=== PATIENT | female | born 1965 | race Hispanic/Latino ===

== ENCOUNTER 2018-06-14 08:16 | Observation (INO) | payer BC, MEDICARE ==
[2018-06-14 08:21] VITALS: BMI 21.5
[2018-06-14] MEDS ORDERED: Iohexol 240 (50 ml) PO ONE (08:48)
[2018-06-14] MEDS ORDERED: Sodium Chloride 0.9% 1,000 ML IV STA (08:49)
[2018-06-14] MEDS ORDERED: Iohexol 240 (50 ml) ONE (08:56)
[2018-06-14] MEDS ORDERED: Morphine 4 MG/ML VIAL ONE (08:57)
--- NOTE | 2018-06-14 09:00 | ED PDOC ---
HPI: Abdomen Time Seen by Provider: 06/14/18 08:35 Chief Complaint (Nursing): Abdominal Pain Chief Complaint (Provider): Abdominal Pain History Per: Patient History/Exam Limitations: no limitations Onset/Duration Of Symptoms: Worse Since (1 day) Location Of Pain/Discomfort: RLQ Associated Symptoms: Nausea, Vomiting. denies: Fever, Diarrhea Additional Complaint(s): 52 years old female with history of chronic pancreatitis, diabetes, hypertension and high cholesterol, who is currently visiting from [place], [place], presents to ER for a new abdominal pain in right lower quadrant associated with ongoing nausea and vomiting onset 1 day that she states is inconsistence with prior history of pain. Patient reports having chronic pancreatitis for 10 years due to elevated triglycerides and chronic G2 in which she supplemented a diet for when pain worsens. She states she woke up yesterday on symptoms that have been worsening for the last 24 hours. Patient is unsure if nausea is different than her baseline nausea. She reports taking pain medication of dilaudid medication and oxycontin daily. Patient denies any fever or diarrhea. PMD: Dr. Sharda Bruce. Past Medical History Reviewed: Historical Data, Nursing Documentation, Vital Signs Vital Signs: Last Vital Signs Temp 98.3 F 06/14/18 08:21 Pulse 83 06/14/18 08:21 Resp 20 06/14/18 08:21 BP 143/74 06/14/18 08:21 Pulse Ox 97 06/14/18 08:21 - Medical History PMH: Diabetes, HTN, Hypercholesterolemia, Hyperlipidemia, Pancreatitis (with feeding tube for periodic use with flareups) Denies: Chronic Kidney Disease - Surgical History Other surgeries: G2 - Family History Family History: States: Unknown Family Hx - Social History Current smoker - smoking cessation education provided: No Alcohol: None Drugs: Denies - Immunization History Hx Tetanus Toxoid Vaccination: No Hx Influenza Vaccination: No Hx Pneumococcal Vaccination: No - Home Medications Home Medications: Ambulatory Orders Medication Instructions Recorded Aspirin [Aspirin Chewable] 81 mg PO DAILY 06/14/18 Ergocalciferol (Vitamin D2) 50,000 unit PO QWK 06/14/18 [Vitamin D2] Fenofibrate [Tricor] 145 mg PO DAILY 06/14/18 Gabapentin [Neurontin] 400 mg PO TID 06/14/18 HYDROmorphone [Dilaudid] 4 mg PO DAILY 06/14/18 Insulin Aspart, Recombinant 06/14/18 [Novolog] Lisinopril [Zestril] 20 mg PO DAILY 06/14/18 Metoprolol Succinate [Toprol Xl] 50 mg PO DAILY 06/14/18 Oxycodone HCl [Oxycontin] 20 mg PO TID 06/14/18 Paroxetine HCl [Paxil] 40 mg PO DAILY 06/14/18 Rosuvastatin Calcium [Crestor] 5 mg PO DAILY 06/14/18 amLODIPine [Norvasc] 5 mg PO DAILY 06/14/18 - Allergies Allergies/Adverse Reactions: Allergies Allergy/AdvReac Type Severity Reaction Status Date / Time prochlorperazine AdvReac ANAPHYLAXIS Verified 06/14/18 08:37 [From Compazine] Review of Systems ROS Statement: Except As Marked, All Systems Reviewed And Found Negative Constitutional: Negative for: Fever Gastrointestinal: Positive for: Nausea, Vomiting, Abdominal Pain (RLQ). Negative for: Diarrhea Physical Exam - Reviewed Nursing Documentation Reviewed: Yes Vital Signs Reviewed: Yes - Physical Exam Appears: Positive for: Non-toxic, No Acute Distress Head Exam: Positive for: ATRAUMATIC, NORMOCEPHALIC Skin: Positive for: Normal Color, Warm, Dry Eye Exam: Positive for: Normal appearance, EOMI, PERRL Cardiovascular/Chest: Positive for: Regular Rate, Rhythm. Negative for: Murmur Respiratory: Positive for: Normal Breath Sounds. Negative for: Respiratory Distress Gastrointestinal/Abdominal: Positive for: Tenderness (Right lower quadrant), Guarding, Other (G2 tube in place. + rovsing sign) Back: Positive for: Normal Inspection. Negative for: L CVA Tenderness, R CVA Tenderness Extremity: Positive for: Normal ROM. Negative for: Pedal Edema, Swelling Neurologic/Psych: Positive for: Alert, Oriented (x3) - Laboratory Results Result Diagrams: 06/14/18 08:54 06/14/18 08:54 - ECG O2 Sat by Pulse Oximetry: 97 (RA) Pulse Ox Interpretation: Normal Medical Decision Making Medical Decision Making: Time: 847 Initial Impression: Rule out appendicitis and obstruction Initial Plan: --Workup for acute abdominal pain --NaCl 1,000 ml IV --Morphine 4 mg IV --Iohexol 50 ml PO --Zofran 4 mg IV --CT Abdomen/Pelvis 1304 Abdomen/Pelvis CT FINDINGS: LOWER THORAX: Unremarkable. LIVER: Unremarkable. No gross lesion or ductal dilatation. GALLBLADDER AND BILE DUCTS: Gallbladder is partially contracted the limbs more normal mural thickness. No pericholecystic fluid collection or radiodense cholelithiasis associated. PANCREAS: Unremarkable. No gross lesion or ductal dilatation. SPLEEN: Unremarkable. ADRENALS: Unremarkable. No mass. KIDNEYS AND URETERS: Unremarkable. No hydronephrosis. No solid mass. VASCULATURE: Unremarkable. No aortic aneurysm. Inferior aortic atherosclerotic calcification present. BOWEL: Stomach is remarkable for tubing entering into the antrum and extending into the duodenum terminating at the jejunum. No other pertinent gastric findings appreciable with partial distention noted with gas and oral contrast material. No small or large bowel obstruction is identified. With a moderate amount of retained fecal material scattered throughout the proximal half of the colon. No gross mural thickening appreciable. APPENDIX: The appendix is thickened up to 9.7 mm with mural thickening and periappendiceal reaction present. Reactive changes extend up the right pericolic gutter with trace fluid, compatible with appendicitis. No free intra peritoneal gas collection is identified throughout the abdomen or pelvis, including the periappendiceal space, microperforation is difficult to completely exclude. No abscess identified at this time. PERITONEUM: As above in appendix section. LYMPH NODES: Unremarkable. No enlarged lymph nodes. BLADDER: Urinary bladder is incompletely distended limiting evaluation of the wall which appears mildly thickened without focal lesion appreciable. Cystitis not completely excluded. REPRODUCTIVE: Unremarkable. BONES: No acute fracture. OTHER FINDINGS: None. IMPRESSION: 1. Findings most compatible with appendicitis including periappendiceal reaction and reactive changes extending up into right pericolic gutter. Trace fluid is associated in the pericolic gutter. Limited perforation of the appendix not completely excluded. No free intra peritoneal gas collection identified or abscess. 2. Feeding tube in position entering into the stomach and terminating at jejunum. 3. Urinary bladder distension limited evaluation of urinary bladder wall. Cystitis difficult to exclude. 1300 Spoke to hand frame surgical elastic knitter for consultation, admit to Dr Vela service. Care transferred to surgical team. Antibiotics were initiated. Results explained to patient and family member and initial questions answered at length. --- -- Scribe Attestation: Documented by Nu Joshi, acting as a scribe for Oswaldo Oliva MD. Provider Scribe Attestation: All medical record entries made by the Scribe were at my direction and personally dictated by me. I have reviewed the chart and agree that the record accurately reflects my personal performance of the history, physical exam, medical decision making, and the department course for this patient. I have also personally directed, reviewed, and agree with the discharge instructions and disposition. Disposition - Clinical Impression Clinical Impression: Acute appendicitis - Patient ED Disposition Is Patient to be Admitted: Yes - Disposition Disposition Time: 12:45 Condition: STABLE - Pt Status Changed To: Hospital Disposition Of: Observation - POA Present On Arrival: None
[2018-06-14 09:02] LABS: BASO # 0.1 K/uL (0.0-0.2); BASO % 0.8 % (0.0-2.0); EOS # 0.3 K/uL (0.0-0.7); EOS % 2.6 % (0.0-4.0); HEMOGLOBIN 13.4 g/dL (12.0-16.0); LYMPH # 1.7 K/uL (1.0-4.3); LYMPH % 15.7 % (20.0-40.0); MEAN CELL VOLUME 87.1 fl (81.0-99.0); MEAN CORPUSCULAR HEMOGLOBIN 28.5 pg (27.0-31.0); MEAN CORPUSCULAR HGB CONC 32.7 g/dL (33.0-37.0); MEAN PLATELET VOLUME 8.7 fl (7.2-11.7); MONO # 1.1 K/uL (0.0-0.8); MONO % 10.7 % (0.0-10.0); NEUT # 7.5 K/uL (1.8-7.0); NEUT % 70.2 % (50.0-75.0); RBC 4.72 Mil/uL (3.80-5.20); WHITE BLOOD COUNT 10.7 K/uL (4.8-10.8)
[2018-06-14 09:09] LABS: ALB/GLOB RATIO 1.2 (1.0-2.1); ALBUMIN 3.6 g/dL (3.5-5.0); ALT/SGPT 31 U/L (9-52); AST/SGOT 16 U/L (14-36); BLOOD UREA NITROGEN 14 mg/dl (7-17); CALCIUM 8.9 mg/dL (8.4-10.2); GFR NON-AFRICAN AMERICAN > 60; LIPASE 57 U/L (23-300)
[2018-06-14] MEDS ORDERED: Iohexol 300 100 ML IJ ONE (11:07)
[2018-06-14] MEDS ORDERED: Sodium Chloride 0.9% 50 ML IV ONE (11:08)
[2018-06-14] MEDS ORDERED: Piperacillin/Tazobact 4.5 GM in Sodium Chloride 0.9% 100 ML IVPB STA (12:57)
--- NOTE | 2018-06-14 13:08 | CT ---
Date of service: 06/14/2018 PROCEDURE: CT Abdomen and Pelvis with contrast HISTORY: RLQ pain hx chronic pancreatitis/Gtube; chronic triglyceride elevation COMPARISON: None. TECHNIQUE: Following the intravenous administration of iodinated contrast material, a CT examination of the abdomen and pelvis performed from the domes of the diaphragms to the symphysis pubis with reformatted datasets provided in axial, sagittal and coronal planes. Oral contrast was not administered as per referring physician request. Coronal and sagittal reformats were generated. contrast dose: Omnipaque 300, 95 cc Radiation dose: Total exam DLP = 307.71 mGy-cm. This CT exam was performed using one or more of the following dose reduction techniques: Automated exposure control, adjustment of the mA and/or kV according to patient size, and/or use of iterative reconstruction technique. FINDINGS: LOWER THORAX: Unremarkable. LIVER: Unremarkable. No gross lesion or ductal dilatation. GALLBLADDER AND BILE DUCTS: Gallbladder is partially contracted the limbs more normal mural thickness. No pericholecystic fluid collection or radiodense cholelithiasis associated. PANCREAS: Unremarkable. No gross lesion or ductal dilatation. SPLEEN: Unremarkable. ADRENALS: Unremarkable. No mass. KIDNEYS AND URETERS: Unremarkable. No hydronephrosis. No solid mass. VASCULATURE: Unremarkable. No aortic aneurysm. Inferior aortic atherosclerotic calcification present. BOWEL: Stomach is remarkable for tubing entering into the antrum and extending into the duodenum terminating at the jejunum. No other pertinent gastric findings appreciable with partial distention noted with gas and oral contrast material. No small or large bowel obstruction is identified. With a moderate amount of retained fecal material scattered throughout the proximal half of the colon. No gross mural thickening appreciable. APPENDIX: The appendix is thickened up to 9.7 mm with mural thickening and periappendiceal reaction present. Reactive changes extend up the right pericolic gutter with trace fluid, compatible with appendicitis. No free intra peritoneal gas collection is identified throughout the abdomen or pelvis, including the periappendiceal space, microperforation is difficult to completely exclude. No abscess identified at this time. PERITONEUM: As above in appendix section. LYMPH NODES: Unremarkable. No enlarged lymph nodes. BLADDER: Urinary bladder is incompletely distended limiting evaluation of the wall which appears mildly thickened without focal lesion appreciable. Cystitis not completely excluded. REPRODUCTIVE: Unremarkable. BONES: No acute fracture. OTHER FINDINGS: None. IMPRESSION: 1. Findings most compatible with appendicitis including periappendiceal reaction and reactive changes extending up into right pericolic gutter. Trace fluid is associated in the pericolic gutter. Limited perforation of the appendix not completely excluded. No free intra peritoneal gas collection identified or abscess. 2. Feeding tube in position entering into the stomach and terminating at jejunum. 3. Urinary bladder distension limited evaluation of urinary bladder wall. Cystitis difficult to exclude.
--- NOTE | 2018-06-14 13:58 | CP.PCM.CON ---
History of Present Illness - History of Present Illness History of Present Illness: Surgery Consult: Dr. Pineda Pt is a 52F visiting from [place], with PMHx signifcant for chronic pancreatitis 2/2 hypertriglyceridemia, DM I, & HTN who presents to [facility] with complaints of abdominal pain x 2 days. Pt states she started having abdominal pain on Sunday in the epigastric region and attributed it to heart burn. However, yesterday she woke up with severe periumbilical pain that localized to the RLQ. She describes the pain as dull with increasing severity, and she finally decided to come the ER today when the pain didn't improve. She denies vomiting but admits to intermittent nausea due to her pancreatitis. She denies fevers/chills. In the ER, pt had CT abdomen/pelvis which shows dilated appendix with signific ant dipak-appendiceal inflammation with possibility of microperforation. Surgery called to evaluate. Currently, pt resting comfortably. States pain is still in the RLQ with radiation to the pelvis/back. Denies fevers/chills, chest pain or SOB. PMHx: as listed above PSHx: feeding jejunostomy for bouts of chronic pancreatitis SocialHx: current 1.5 PPD smoker 12+yrs, social EtOH, occasional marijuana for pain ALL: prochlorperazine Review of Systems - Review of Systems All systems: reviewed and no additional remarkable complaints except (as per HPI) Past Patient History - Past Social History Smoking Status: Heavy Smoker > 10 Cigarettes Daily Alcohol: None Drugs: Cannabis - CARDIAC Hx Hypercholesterolemia: Yes Hx Hypertension: Yes - PULMONARY Hx Respiratory Disorders: No - NEUROLOGICAL Hx Neurological Disorder: No - HEENT Hx HEENT Problems: No - RENAL Hx Chronic Kidney Disease: No - ENDOCRINE/METABOLIC Hx Endocrine Disorders: Yes Hx Diabetes Mellitus Type 1: Yes - GASTROINTESTINAL Hx Pancreatitis: Yes (with feeding tube for periodic use with flareups) - GENITOURINARY/GYNECOLOGICAL Hx Genitourinary Disorders: No - PSYCHIATRIC Hx Psychophysiologic Disorder: No Hx Substance Use: No - ANESTHESIA Hx Anesthesia: Yes Hx Anesthesia Reactions: No Meds Allergies/Adverse Reactions: Allergies Allergy/AdvReac Type Severity Reaction Status Date / Time prochlorperazine AdvReac ANAPHYLAXIS Verified 06/14/18 08:37 [From Compazine] - Medications Medications: Current Medications Piperacillin Sod/Tazobactam (Sod 4.5 gm/ Sodium Chloride) 100 mls @ 100 mls/hr IVPB STAT STA; Protocol Stop: 06/14/18 13:56 Lactated Ringer's (Lactated Ringer's) 1,000 mls @ 100 mls/hr IV .Q10H [facility] Piperacillin Sod/Tazobactam (Sod 3.375 gm/ Sodium Chloride) 100 mls @ 100 mls/hr IVPB Q6 [facility]; Protocol Morphine Sulfate (Morphine) 4 mg IVP Q4 PRN PRN Reason: Pain, moderate (4-7) Ondansetron HCl (Zofran Inj) 4 mg IVP Q4 PRN PRN Reason: Nausea/Vomiting Physical Exam - Constitutional Appears: Well, No Acute Distress - Head Exam Head Exam: ATRAUMATIC, NORMOCEPHALIC - Eye Exam Eye Exam: Normal appearance - ENT Exam ENT Exam: Mucous Membranes Moist - Respiratory Exam Respiratory Exam: NORMAL BREATHING PATTERN - Cardiovascular Exam Cardiovascular Exam: RRR - GI/Abdominal Exam GI & Abdominal Exam: Guarding (voluntary), Rebound, Soft, Tenderness (RLQ). absent: Distended - Neurological Exam Neurological exam: Alert, Oriented x3 - Skin Skin Exam: Dry, Warm Results - Vital Signs Recent Vital Signs: Last Vital Signs Temp 98.3 F 06/14/18 08:21 Pulse 83 06/14/18 08:21 Resp 20 06/14/18 08:21 BP 143/74 06/14/18 08:21 Pulse Ox 97 06/14/18 13:18 - Labs Result Diagrams: 06/14/18 08:54 06/14/18 08:54 Labs: Laboratory Results - last 24 hr 06/14/18 06/14/18 08:54 08:54 WBC 10.7 RBC 4.72 Hgb 13.4 Hct 41.1 MCV 87.1 MCH 28.5 MCHC 32.7 L RDW 15.0 H Plt Count 373 MPV 8.7 Neut % (Auto) 70.2 Lymph % (Auto) 15.7 L [place] % (Auto) 10.7 H Eos % (Auto) 2.6 Baso % (Auto) 0.8 Neut # (Auto) 7.5 H Lymph # (Auto) 1.7 [place] # (Auto) 1.1 H Eos # (Auto) 0.3 Baso # (Auto) 0.1 Sodium 134 Potassium 4.2 Chloride 99 Carbon Dioxide 27 Anion Gap 12 BUN 14 Creatinine 0.8 Est GFR ( Amer) > 60 Est GFR (Non-Af Amer) > 60 Random Glucose 262 H Calcium 8.9 Total Bilirubin 0.2 AST 16 ALT 31 Alkaline Phosphatase 41 Total Protein 6.5 Albumin 3.6 Globulin 2.9 Albumin/Globulin Ratio 1.2 Lipase 57 - Imaging and Cardiology CT scan - abdomen Status: Image reviewed by me, Report reviewed by me Assessment & Plan - Assessment and Plan (Free Text) Assessment: 52F with acute appendicitis; likely perforated Plan: - NPO, IVF, IV ABX - will discuss operative intervention with Dr. Edwin Hall
--- NOTE | 2018-06-14 14:17 | CP.PCM.HP ---
History of Present Illness - History of Present Illness History of Present Illness: Surgery Consult: Dr. Pineda Pt is a 52F visiting from [place], with PMHx signifcant for chronic pancreatitis 2/2 hypertriglyceridemia, DM I, & HTN who presents to [facility] with complaints of abdominal pain x 2 days. Pt states she started having abdominal pain on Sunday in the epigastric region and attributed it to heart burn. However, yesterday she woke up with severe periumbilical pain that localized to the RLQ. She describes the pain as dull with increasing severity, and she finally decided to come the ER today when the pain didn't improve. She denies vomiting but admits to intermittent nausea due to her pancreatitis. She denies fevers/chills. In the ER, pt had CT abdomen/pelvis which shows dilated appendix with significa nt dipak-appendiceal inflammation with possibility of microperforation. Surgery called to evaluate. Currently, pt resting comfortably. States pain is still in the RLQ with radiation to the pelvis/back. Denies fevers/chills, chest pain or SOB. PMHx: as listed above PSHx: feeding jejunostomy for bouts of chronic pancreatitis SocialHx: current 1.5 PPD smoker 12+yrs, social EtOH, occasional marijuana for pain ALL: prochlorperazine Present on Admission - Present on Admission Any Indicators Present on Admission: No History of DVT/PE: No History of Uncontrolled Diabetes: No Urinary Catheter: No Decubitus Ulcer Present: No Review of Systems - Review of Systems All systems: reviewed and no additional remarkable complaints except (as per HPI) Past Patient History - Past Social History Smoking Status: Heavy Smoker > 10 Cigarettes Daily Alcohol: None Drugs: Cannabis - CARDIAC Hx Hypercholesterolemia: Yes Hx Hypertension: Yes - PULMONARY Hx Respiratory Disorders: No - NEUROLOGICAL Hx Neurological Disorder: No - HEENT Hx HEENT Problems: No - RENAL Hx Chronic Kidney Disease: No - ENDOCRINE/METABOLIC Hx Endocrine Disorders: Yes Hx Diabetes Mellitus Type 1: Yes - GASTROINTESTINAL Hx Pancreatitis: Yes (with feeding tube for periodic use with flareups) - GENITOURINARY/GYNECOLOGICAL Hx Genitourinary Disorders: No - PSYCHIATRIC Hx Psychophysiologic Disorder: No Hx Substance Use: No - ANESTHESIA Hx Anesthesia: Yes Hx Anesthesia Reactions: No Meds Allergies/Adverse Reactions: Allergies Allergy/AdvReac Type Severity Reaction Status Date / Time prochlorperazine AdvReac ANAPHYLAXIS Verified 06/14/18 08:37 [From Compazine] Physical Exam - Constitutional Appears: Well, No Acute Distress - Head Exam Head Exam: ATRAUMATIC, NORMOCEPHALIC - Eye Exam Eye Exam: Normal appearance - ENT Exam ENT Exam: Mucous Membranes Moist - Respiratory Exam Respiratory Exam: NORMAL BREATHING PATTERN - Cardiovascular Exam Cardiovascular Exam: RRR - GI/Abdominal Exam GI & Abdominal Exam: Guarding (voluntary ), Rebound, Soft, Tenderness (RLQ). absent: Distended - Neurological Exam Neurological exam: Alert, Oriented x3 - Skin Skin Exam: Dry, Warm Results - Vital Signs Recent Vital Signs: Last Vital Signs Temp 98.3 F 06/14/18 08:21 Pulse 83 06/14/18 08:21 Resp 20 06/14/18 08:21 BP 143/74 06/14/18 08:21 Pulse Ox 97 06/14/18 13:18 - Labs Result Diagrams: 06/14/18 08:54 06/14/18 08:54 Labs: Laboratory Results - last 24 hr 06/14/18 06/14/18 08:54 08:54 WBC 10.7 RBC 4.72 Hgb 13.4 Hct 41.1 MCV 87.1 MCH 28.5 MCHC 32.7 L RDW 15.0 H Plt Count 373 MPV 8.7 Neut % (Auto) 70.2 Lymph % (Auto) 15.7 L [place] % (Auto) 10.7 H Eos % (Auto) 2.6 Baso % (Auto) 0.8 Neut # (Auto) 7.5 H Lymph # (Auto) 1.7 [place] # (Auto) 1.1 H Eos # (Auto) 0.3 Baso # (Auto) 0.1 Sodium 134 Potassium 4.2 Chloride 99 Carbon Dioxide 27 Anion Gap 12 BUN 14 Creatinine 0.8 Est GFR ( Amer) > 60 Est GFR (Non-Af Amer) > 60 Random Glucose 262 H Calcium 8.9 Total Bilirubin 0.2 AST 16 ALT 31 Alkaline Phosphatase 41 Total Protein 6.5 Albumin 3.6 Globulin 2.9 Albumin/Globulin Ratio 1.2 Lipase 57 - Imaging and Cardiology CT scan - abdomen Status: Image reviewed by me, Report reviewed by me Assessment & Plan - Assessment and Plan (Free Text) Assessment: 52F with acute appendicitis; likely perforated Plan: - NPO, IVF, IV ABX - will discuss operative intervention with Dr. Edwin Hall
[2018-06-14] MEDS ORDERED: Ergocalciferol 50,000 Intl Units Cap PO SCH (14:30)
[2018-06-14] MEDS: Lactated Ringer's 1,000 ML IV SCH ×2 (15:39→23:54)
[2018-06-14] MEDS: Piperacillin/Tazobact 3.375 GM in Sodium Chloride 0.9% 100 ML IVPB SCH ×2 (16:32→22:00)
[2018-06-14] MEDS ORDERED: Influenza Vaccine (5 YR UP)/PF 60 MCG/0.5 ML SYR IM ONE (18:30)
[2018-06-14] MEDS ORDERED: Lidocaine 1% w Epi 1:100,000 Inj ONE (19:44)
[2018-06-14] MEDS ORDERED: Propofol 10 mg/ml Inj (20 ML) ONE (20:21)
[2018-06-14] MEDS ORDERED: Succinylcholine 200 mg/10 ml Inj IV ONE (20:21)
[2018-06-14] MEDS ORDERED: Rocuronium 10 mg/ml (5 ml) ONE (20:21)
[2018-06-14] MEDS ORDERED: Midazolam 2 MG/2 ML VIAL ONE (20:21)
[2018-06-14] MEDS ORDERED: Neostigmine 1:1000 (1 mg/ml) Inj ONE (20:22)
[2018-06-14] MEDS ORDERED: Lidocaine 4% (Laryng-O-Jet) Kit MM ONE (20:22)
[2018-06-14] MEDS ORDERED: Lactated Ringer's 1,000 ML IV ONE (21:45)
[2018-06-14] MEDS ORDERED: Dexamethasone 4 mg/1 ml ONE (22:08)
[2018-06-14] MEDS: Bupivacaine HCl 0.25% PF (30 ml) Inj ONE ×2 (22:12→22:30)
[2018-06-14] MEDS ORDERED: Bupivacaine HCl 0.25% PF (30 ml) Inj ONE (22:22)
--- NOTE | 2018-06-14 22:58 | PCM.SURG1 ---
Surgeon's Initial Post Op Note - Surgeon's Notes Surgeon: Dr. Pineda Disability Examiner: Dr. Hall PGY-3 Type of Anesthesia: General Endo Anesthesia Administered By: Dr. Sharpe Pre-Operative Diagnosis: Acute Appendicitis Operative Findings: See operative report Post-Operative Diagnosis: Same Operation Performed: Laparoscopic Appendectomy; TAP block Specimen/Specimens Removed: Appendix Estimated Blood Loss: EBL {In ML}: 5 Blood Products Given: N/A Drains Used: No Drains Post-Op Condition: Good Date of Surgery/Procedure: 06/14/18 Time of Surgery/Procedure: 22:58
[2018-06-14] MEDS ORDERED: Dexamethasone 4 mg/1 ml IVP PRN (23:00)
[2018-06-14] MEDS ORDERED: HYDROmorphone 0.5 mg/0.5 ml ISec IVP PRN (23:00)
[2018-06-15] MEDS: Piperacillin/Tazobact 3.375 GM in Sodium Chloride 0.9% 100 ML IVPB SCH ×4 (04:12→21:04)
[2018-06-15 07:19] LABS: BASO % 0.1 % (0.0-2.0); HEMOGLOBIN 13.1 g/dL (12.0-16.0); LYMPH # 0.7 K/uL (1.0-4.3); LYMPH % 5.3 % (20.0-40.0); MEAN CELL VOLUME 87.9 fl (81.0-99.0); MEAN CORPUSCULAR HEMOGLOBIN 28.4 pg (27.0-31.0); MEAN CORPUSCULAR HGB CONC 32.3 g/dL (33.0-37.0); MEAN PLATELET VOLUME 9.5 fl (7.2-11.7); MONO # 0.3 K/uL (0.0-0.8); MONO % 2.4 % (0.0-10.0); NEUT # 12.3 K/uL (1.8-7.0); NEUT % 92.2 % (50.0-75.0); PLATELET COUNT 342 K/uL (130-400); RED CELL DISTRIBUTION WIDTH 14.7 % (11.5-14.5); WHITE BLOOD COUNT 13.3 K/uL (4.8-10.8)
[2018-06-15 07:23] LABS: BLOOD UREA NITROGEN 14 mg/dl (7-17); CALCIUM 8.8 mg/dL (8.4-10.2); GFR NON-AFRICAN AMERICAN > 60
[2018-06-15] MEDS ORDERED: Patient's Own Med (Paroxetine Hcl [Paxil] 40 MG) PO SCH (09:00)
--- NOTE | 2018-06-15 09:06 | CP.PCM.PN ---
Subjective - Date & Time of Evaluation Date of Evaluation: 06/15/18 Time of Evaluation: 07:00 - Subjective Subjective: GENERAL SURGERY PROGRESS NOTE FOR DR. SALVADOR Patient seen and examined at bedside. She states that she is sore around the incision sites but that her pain is overall better after the surgery. She has not voided yet. She is tolerating her diet. Objective - Vital Signs/Intake and Output Vital Signs (last 24 hours): Temp Pulse Resp BP Pulse Ox 98.2 F 77 20 110/62 98 06/15/18 03:30 06/15/18 03:30 06/15/18 03:30 06/15/18 03:30 06/15/18 03:30 Intake and Output: 06/15/18 06/15/18 06:59 18:59 Intake Total 1050 Balance 1050 - Medications Medications: Current Medications Amlodipine Besylate (Norvasc) 5 mg PO DAILY [facility] Atorvastatin Calcium (Lipitor) 10 mg PO DAILY [facility] Ergocalciferol (Drisdol 50,000 Intl Units Cap) 1 cap PO QWK [facility] Fenofibrate (Tricor) 145 mg PO DAILY [facility] Gabapentin (Neurontin) 400 mg PO TID [facility] Last Admin: 06/14/18 16:35 Dose: 400 mg Lactated Ringer's (Lactated Ringer's) 1,000 mls @ 100 mls/hr IV .Q10H [facility] Last Admin: 06/14/18 23:54 Dose: 0 mls Piperacillin Sod/Tazobactam (Sod 3.375 gm/ Sodium Chloride) 100 mls @ 100 mls/h r IVPB Q6 [facility]; Protocol Last Admin: 06/15/18 04:12 Dose: 100 mls/hr Lisinopril (Zestril) 20 mg PO DAILY [facility] Metoprolol Succinate (Toprol Xl) 50 mg PO DAILY [facility] Morphine Sulfate (Morphine) 4 mg IVP Q4 PRN PRN Reason: Pain, moderate (4-7) Last Admin: 06/15/18 06:17 Dose: 4 mg Ondansetron HCl (Zofran Inj) 4 mg IVP Q4 PRN PRN Reason: Nausea/Vomiting Oxycodone/Acetaminophen (Percocet 5/325 Mg Tab) 1 tab PO Q4 PRN PRN Reason: Pain, Mild (1-3) Stop: 06/17/18 22:57 Paroxetine HCl (Paxil) 40 mg PO DAILY [facility] - Labs Labs: 06/15/18 05:30 06/15/18 05:30 - Constitutional Appears: Non-toxic, No Acute Distress - Head Exam Head Exam: ATRAUMATIC, NORMAL INSPECTION - Eye Exam Eye Exam: EOMI, Normal appearance - Respiratory Exam Respiratory Exam: NORMAL BREATHING PATTERN. absent: Respiratory Distress - Cardiovascular Exam Cardiovascular Exam: +S1, +S2 - GI/Abdominal Exam GI & Abdominal Exam: Soft, Tenderness (mild tenderness around incision sites). absent: Distended, Firm, Guarding, Rigid, Rebound Additional comments: Dermabond in place over laparoscopic incision sites - Neurological Exam Neurological Exam: Alert, Awake, Oriented x3 - Psychiatric Exam Psychiatric exam: Normal Affect, Normal Mood - Skin Skin Exam: Dry, Normal Color, Warm Assessment and Plan - Assessment and Plan (Free Text) Assessment: 52yo F with appendicitis s/p lap appendectomy POD#1 - Afebrile, VSS - Leukocytosis WBC 13.3 from 10.7 - Will continue IV antibiotics for 1 more day and recheck CBC in AM - Monitor for voiding, bladder scan - Tolerating regular diet - Encouraged ambulation and IS use - Discussed plan with Dr. Edwin Gentile PGY-4
[2018-06-15] MEDS: Metoprolol Succinate 50 mg XL Tab PO SCH (09:51)
[2018-06-15] MEDS: Lactated Ringer's 1,000 ML IV SCH ×2 (09:55→21:14)
[2018-06-15] MEDS: Oxycodone/Acetaminophen 5/325 mg Tab PO PRN ×3 (12:29→21:02)
[2018-06-15] MEDS: Insulin Regular 100 units/ml SC SCH ×3 (12:54→22:17)
[2018-06-15 12:56] LABS: LYMPHOCYTE 7 % (20-50); MONOCYTE 3 % (0-10); NEUTROPHIL 90 % (42-75); PLATELET ESTIMATE NORMAL (NORMAL); TOTAL CELLS COUNTED 100
[2018-06-15 12:57] LABS: ANISOCYTOSIS SLIGHT; LARGE PLATELETS PRESENT
[2018-06-16] MEDS: Piperacillin/Tazobact 3.375 GM in Sodium Chloride 0.9% 100 ML IVPB SCH ×2 (04:55→09:42)
[2018-06-16 07:25] LABS: BASO # 0.1 K/uL (0.0-0.2); BASO % 0.5 % (0.0-2.0); EOS # 0.4 K/uL (0.0-0.7); EOS % 2.7 % (0.0-4.0); HEMOGLOBIN 12.3 g/dL (12.0-16.0); LYMPH # 1.3 K/uL (1.0-4.3); LYMPH % 9.6 % (20.0-40.0); MEAN CELL VOLUME 87.5 fl (81.0-99.0); MEAN CORPUSCULAR HEMOGLOBIN 27.8 pg (27.0-31.0); MEAN CORPUSCULAR HGB CONC 31.8 g/dL (33.0-37.0); MEAN PLATELET VOLUME 9.4 fl (7.2-11.7); MONO # 0.9 K/uL (0.0-0.8); MONO % 6.2 % (0.0-10.0); NEUT # 11.4 K/uL (1.8-7.0); NRBC % 0.1 % (0.0-0.0); RBC 4.4 Mil/uL (3.80-5.20); RED CELL DISTRIBUTION WIDTH 14.6 % (11.5-14.5)
[2018-06-16 07:29] LABS: BLOOD UREA NITROGEN 13 mg/dl (7-17); CALCIUM 8.7 mg/dL (8.4-10.2); GFR NON-AFRICAN AMERICAN > 60
--- NOTE | 2018-06-16 08:16 | CP.PCM.DIS ---
Provider - Provider Date of Admission: 06/14/18 13:08 Attending physician: Som Pineda MD Time Spent in preparation of Discharge (in minutes): 30 Diagnosis - Discharge Diagnosis (1) Appendicitis Status: Resolved Hospital Course - Lab Results Lab Results: Most Recent Lab Values WBC 14.0 K/uL (4.8-10.8) H 06/16/18 05:30 RBC 4.40 Mil/uL (3.80-5.20) 06/16/18 05:30 Hgb 12.3 g/dL (12.0-16.0) 06/16/18 05:30 Hct 38.5 % (34.0-47.0) 06/16/18 05:30 MCV 87.5 fl (81.0-99.0) 06/16/18 05:30 MCH 27.8 pg (27.0-31.0) 06/16/18 05:30 MCHC 31.8 g/dL (33.0-37.0) L 06/16/18 05:30 RDW 14.6 % (11.5-14.5) H 06/16/18 05:30 Plt Count 377 K/uL (130-400) 06/16/18 05:30 MPV 9.4 fl (7.2-11.7) 06/16/18 05:30 Neut % (Auto) 81.0 % (50.0-75.0) H 06/16/18 05:30 Lymph % (Auto) 9.6 % (20.0-40.0) L 06/16/18 05:30 Page % (Auto) 6.2 % (0.0-10.0) 06/16/18 05:30 Eos % (Auto) 2.7 % (0.0-4.0) 06/16/18 05:30 Baso % (Auto) 0.5 % (0.0-2.0) 06/16/18 05:30 Neut # (Auto) 11.4 K/uL (1.8-7.0) H 06/16/18 05:30 Lymph # (Auto) 1.3 K/uL (1.0-4.3) 06/16/18 05:30 Page # (Auto) 0.9 K/uL (0.0-0.8) H 06/16/18 05:30 Eos # (Auto) 0.4 K/uL (0.0-0.7) 06/16/18 05:30 Baso # (Auto) 0.1 K/uL (0.0-0.2) 06/16/18 05:30 Neutrophils % (Manual) 90 % (42-75) H 06/15/18 05:30 Lymphocytes % (Manual) 7 % (20-50) L 06/15/18 05:30 Monocytes % (Manual) 3 % (0-10) 06/15/18 05:30 Platelet Estimate Normal (NORMAL) 06/15/18 05:30 Large Platelets Present 06/15/18 05:30 Anisocytosis (manual) Slight 06/15/18 05:30 Sodium 138 mmol/l (132-148) 06/16/18 05:30 Potassium 4.4 MMOL/L (3.6-5.0) 06/16/18 05:30 Chloride 104 mmol/L (98-107) 06/16/18 05:30 Carbon Dioxide 30 mmol/L (22-30) 06/16/18 05:30 Anion Gap 8 (10-20) L 06/16/18 05:30 BUN 13 mg/dl (7-17) 06/16/18 05:30 Creatinine 0.9 mg/dl (0.7-1.2) 06/16/18 05:30 Est GFR ( Amer) > 60 06/16/18 05:30 Est GFR (Non-Af Amer) > 60 06/16/18 05:30 POC Glucose (mg/dL) 83 mg/dL (65-110) 06/14/18 22:59 Random Glucose 231 mg/dL (65-105) H 06/16/18 05:30 Calcium 8.7 mg/dL (8.4-10.2) 06/16/18 05:30 Total Bilirubin 0.2 mg/dl (0.2-1.3) 06/14/18 08:54 AST 16 U/L (14-36) 06/14/18 08:54 ALT 31 U/L (9-52) 06/14/18 08:54 Alkaline Phosphatase 41 U/L (38-126) 06/14/18 08:54 Total Protein 6.5 G/DL (6.3-8.2) 06/14/18 08:54 Albumin 3.6 g/dL (3.5-5.0) 06/14/18 08:54 Globulin 2.9 gm/dL (2.2-3.9) 06/14/18 08:54 Albumin/Globulin Ratio 1.2 (1.0-2.1) 06/14/18 08:54 Lipase 57 U/L (23-300) 06/14/18 08:54 - Hospital Course Hospital Course: 52F with PMHx significant for chronic pancreatitis 2/2 hypertriglyceridemia, HTN, & DM I who presented to [facility] with RLQ abdominal pain x 2 days. Pt described pain starting in the periumbilical region and localizing to the RLQ. She denied associated vomiting, fevers or chills. In the ER, pt had a CT abdomen/pelvis which showed acute appendicitis. Pt was taken to the OR for lap appendectomy and she tolerated the surgery well. POD#1 pt with persistent leukocytosis and was kept for IV ABX. This morning pt is doing well. She denies abdominal pain and is tolerating her diet. Denies nausea/vomiting, fevers/chills. Pt is ambulating and admits to flatus. DC home on PO ABX. Discharge Exam - Head Exam Head Exam: ATRAUMATIC, NORMOCEPHALIC - Eye Exam Eye Exam: Normal appearance - ENT Exam ENT Exam: Mucous Membranes Moist - Respiratory Exam Respiratory Exam: NORMAL BREATHING PATTERN - Cardiovascular Exam Cardiovascular Exam: RRR - GI/Abdominal Exam GI & Abdominal Exam: Tenderness (around incisions, C/D/I ). absent: Guarding, Rebound - Neurological Exam Neurological exam: Alert, Oriented x3 - Skin Skin Exam: Dry, Warm Discharge Plan - Discharge Medications Prescriptions: levoFLOXacin [Levaquin] 500 mg PO DAILY 7 Days tab metroNIDAZOLE [Flagyl] 500 mg PO Q8H 7 Days tab - Follow Up Plan Condition: STABLE Disposition: HOME/ ROUTINE Instructions: Appendicitis, Adult (DC) Referrals: Som Pineda MD [Staff Provider] -
[2018-06-16] MEDS: Insulin Regular 100 units/ml SC SCH (08:20)
[2018-06-16] MEDS: Metoprolol Succinate 50 mg XL Tab PO SCH (08:24)
[2018-06-16] MEDS: Lactated Ringer's 1,000 ML IV SCH (08:34)
[2018-06-16 09:30] VITALS: BP 136/71; PULSE 74; RESP 20; TEMP 99; O2SAT 92
--- NOTE | 2018-06-17 11:06 | CARD ---
APPROVED REPORT Date of service: 06/14/2018 EKG Measurement Heart [id number] <Conclusion> Normal sinus rhythm Normal Electrocardiogram
--- NOTE | 2018-06-20 05:06 | OP ---
PROCEDURE DATE: 06/14/2018 A 52-year-old female. PREOPERATIVE DIAGNOSES: 1. Acute appendicitis. 2. Incarcerated umbilical hernia. POSTOPERATIVE DIAGNOSES: 1. Acute appendicitis. 2. Incarcerated umbilical hernia. SURGERIES: 1. Laparoscopic appendectomy. 2. Partial cecectomy. 3. Repair of incarcerated umbilical hernia. 4. Bilateral sono-guided transversus abdominis plane block anesthesia. SURGEON: Som Pineda MD ANESTHESIA: General endotracheal. ESTIMATED BLOOD LOSS: 15 mL. INTRAVENOUS FLUIDS: 1 L of Ringer's lactate. DRAINS: None. IMPLANTS: None. COMPLICATIONS: None. DISPOSITION: Stable, extubated to the recovery room. CLINICAL INFORMATION: Mrs. Felix is a 52-year-old female who experienced periumbilical and right lower quadrant abdominal pain accompanied by nausea and malaise over the last 48 hours. She came to the [facility] Emergency Room, and clinical examination was consistent with right lower quadrant moderate tenderness and guarding with rebound as well as the small incarcerated umbilical hernia. The white blood count was elevated, and the CAT scan confirmed diagnosis of acute appendicitis. INTRAOPERATIVE FINDINGS: The patient appeared to have enlarged inflamed appendix with thickened mesoappendix and extending all the way to the cecum. There was small amount of cloudy reactive fluid in the right paracolic gutter and the right pelvic area. There was a small incarcerated umbilical hernia with preperitoneal and omental fat pad contents. DESCRIPTION OF THE SURGERY: The patient was brought to the operating room and placed on the operating table in the supine position. After smooth induction of general endotracheal anesthesia, Venodyne boots were placed in both legs, and prophylactic antibiotics were given. The entire abdomen was prepped and draped in the usual sterile fashion. The infraumbilical area was infiltrated with local anesthetic, which comprised of 0.5% Marcaine and 1% lidocaine with epinephrine in equal volumes. A 15-blade was used to perform a vertical incision below the border of the umbilicus, which was then brought down to the subcutaneous tissue using Bovie electrocautery. The linea alba was incised and the peritoneal cavity was accessed. The umbilical hernial sac was then defined, and its contents were reduced back to the peritoneal cavity after the sac was dissected free from its attachments to the surrounding tissues. The 0 Vicryl stitch was placed on each side of the incised fascia. Mcmahan trocar was inserted. The obturator was removed. The port was secured in the abdominal wall stay sutures, and the port was connected to CO2 tank in order to generate the pneumoperitoneum up to 50 mmHg. The patient's position was changed that of a reverse Trendelenburg with the left side down exposing the right lower quadrant. Two 5-mm ports were inserted into the lower abdomen mainly in the suprapubic and left lower quadrant areas after infiltrating the skin with local anesthesia and incising with the 15-blade. The 5-mm ports were inserted under direct laparoscopic visualization and through this port, a 5-mm curved ligature and endograsper were inserted. The attention was focused in the right lower quadrant where the appendix appeared to be partly concealed by the omentum and the cecum, and the tip appeared to be inflamed, enlarged, edematous. There was a small amount of cloudy reactive fluid in the right paracolic gutter and the right side of the pelvis. The patient had previous hysterectomy and there were adhesions in the area as well as the right colon and cecum. Dissection was ensured in the sharp and blunt fashion, freeing the omentum from its attachments to the right colon, cecum, and the appendix as well as the lateral pelvic wall. Dissection continued until enterolysis was placed although extensively until the appendix was identified completely freed from the attachments to the cecum and the right lateral abdominal wall and exposing its entirety. There appeared to be inflammation although we went through the base of the appendix and the cecum. The mesoappendix was secured with the precise ligature in a sequential fashion all the way to the base of the appendix and the underlying cecum. The camera was fixed with 5-mm 30-degree and was inserted through the left lower quadrant port. The Endo HARSHIL blue stapler was inserted through the infraumbilical port and was fired across the base of the appendix including part of the cecum because this was involved. Two more reloads of the Endo HARSHIL 45 were used to complete the partial cecectomy, and the specimen was placed in the Endo bag, removed from the operating field, and sent to Pathology with appropriately labeled. The abdomen was irrigated with copious amounts of warm normal saline as there was no evidence of bleeding from the mesoappendix or sulcus discharge from the staple line. The infraumbilical port was removed, and the fascia was closed with interrupted 0 Vicryl stitches in a tension-free fashion closing the umbilical hernia defect as well. Integrity of the fascia closure was checked by inserting a 5-mm 30-degree laparoscopic video camera through the left lower quadrant port, and also it was confirmed that there was no evidence of bowel or omental flap and no bleeding from the port site. The remaining two 5-mm ports were removed under direct laparoscopic visualization, and there was no evidence of bleeding from the port sites. All the skin incisions were closed with 4-0 continuous subcuticular Monocryl stitch and Dermabond was applied. Bilateral sono-guided transversus abdominis plane block anesthesia was then applied using a small probe with the one of three quarters needle advanced to the bladder of the semilunar line and injecting 10 mL of 0.5% Marcaine at the transversus abdominis muscle plane on each side. At the end of the surgery, the counts of the instruments, gauze, and needles were correct x2. The patient tolerated the surgery well and was transferred in stable condition to the recovery room. Som Pineda MD
== END 2018-06-16 13:00 | disposition home or self-care (01) ==
LOC: H.ER 08:16 → INTOOBSV 13:08 → H.ERHOLD 13:08 → H.MEDSURG1 14:52
PROVIDERS: ADMIT Specialist; ATTEND Specialist
DX: K35.80 Unspecified acute appendicitis (principal); K42.0 Umbilical hernia with obstruction, without gangrene; K85.90 Acute pancreatitis without necrosis or infection, unspecified; K86.1 Other chronic pancreatitis; N30.90 Cystitis, unspecified without hematuria; E10.9 Type 1 diabetes mellitus without complications; Z79.4 Long term (current) use of insulin; Z79.899 Other long term (current) drug therapy; E78.00 Pure hypercholesterolemia, unspecified; E78.1 Pure hyperglyceridemia; E78.5 Hyperlipidemia, unspecified; F12.90 Cannabis use, unspecified, uncomplicated; F17.200 Nicotine dependence, unspecified, uncomplicated; I10 Essential (primary) hypertension; Z23 Encounter for immunization
CPT/HCPCS: 36415; 44204; 44970; 49653; 64488; 74177; 80048; 80053; 81025; 82948; 83690; 85025; 88304; 93005; 96361; 96365; 96366; 96375; 96376; 99285; G0008; G0378; J0131; J0330; J1100; J1170; J2001; J2250; J2270; J2405; J2543; J2704; J2710; J3010; J7030; J7120; Q2035; Q9966; Q9967